=== PATIENT | female | born 1970 | race Caucasian/White ===

== ENCOUNTER 2021-08-23 09:17 | Emergency (ER) | payer OTHER, BC, SELFPAY ==
[2021-08-23] VITALS (14 sets, daily range): BP systolic 119–167; BP diastolic 62–98; PULSE 106; RESP 20; TEMP 36.4–36.6; O2SAT 96–99
--- NOTE | ~2021-08-23 | CT_ITS ---
EXAMINATION: CT abdomen pelvis w con INDICATION: Central abdominal and right upper quadrant pain TECHNIQUE: Computed tomographic images of the abdomen and pelvis were obtained after the administrati on of 100 cc of Omnipaque 300 intravenous contrast. The dose-length product (DLP) was 1318.62 mGy-cm. Automated exposure control and iterative reconstruction technique were employed. COMPARISON: None available FINDINGS: The lung bases are clear. The heart size is normal. Cysts of the liver measure up to 10 mm in the right hepatic lobe. The spleen, pancreas, gallbladder, and right adrenal gland are normal. The re is a 9 mm mass of the left adrenal gland which may reflect an adenoma. There are punctate nonobstr ucting stones of the left kidney. The right kidney is unremarkable. No pathologically enlarged abdomi nal or pelvic lymph nodes are identified. There is no free intraperitoneal gas or evidence of bowel o bstruction. There is a fat-containing midline ventral hernia approximately 3.5 cm cephalad to the umb ilicus. Although the neck measures approximately 2.1 cm, there is a moderate amount of associated inf lammatory change and hernia and a small amount of fluid in the hernia sac. There is also a small fat- containing umbilical hernia. The appendix is normal. IMPRESSION: 1. Fat-containing midline ventral hernia cephalad to the umbilicus with moderate associated inflammat ory change as well as small volume of fluid. Reviewed, dictated and finalized at location A. IMPRESSION: 1. Fat-containing midline ventral hernia cephalad to the umbilicus with moderat e associated inflammatory change as well as small volume of fluid.
--- NOTE | ~2021-08-23 | US_ITS ---
EXAMINATION: US right upper quadrant DATE: 08/23/2021 10:48 INDICATION: Right upper quadrant. TECHNIQUE: Multiple grayscale and Doppler ultrasound images of the abdomen were obtained. COMPARISON: CT from today FINDINGS: The head, body, and tail of the pancreas are normal. The liver is unremarkable with normal echogenicity and echotexture. No surface nodularity. Normal hepatopetal flow in the main portal vein. The gallbladder is normal with no abnormal wall thickening, pericholecystic fluid or stones. The nor mal common bile duct measures 4 mm. There was no sonographic Morrow sign. IMPRESSION: 1. Normal sonographic study of the gallbladder. Reviewed, dictated and finalized at location A.
--- NOTE | 2021-08-23 09:47 | ED.ABDPAIN ---
HPI - Abdominal Pain General Chief Complaint: Abdominal Pain Stated Complaint: abd pain Time Seen by Provider: 08/23/21 09:30 History of Present Illness HPI narrative: 51 y/o female presents to the ER today for complaints of abdominal pain. She says that it is not very painful right now but yesterday evening and through the night it was very painful and she was not able to rest. She says that the pain is in her epigastric and RUQ area and will radiate into her back. She also has a known abdominal hernia that she says has been feeling tender. This is near the umbilicus, to the right of it. She says that she had a similar episode on August 10 that lasted a couple of days. She also recounts and episode of heartburn and foul smelling belching for about a week around July 28. She says that she feels like something is wrong with her GI system but not sure what it is. She still has her gallbladder. She is not sure if food intake brings symptoms on but says that it is possible. No nausea, vomiting or diarrhea. She does report history of GERD. Related Data Home Medications Medication Instructions Recorded Confirmed ferrous sulfate 325 mg (65 mg 325 mg PO DAILY 02/26/19 07/05/20 iron) tablet fluticasone propionate 50 1 spray INTRANASAL BID 03/03/20 07/05/20 mcg/actuation nasal spray,suspension cholecalciferol (vitamin D3) 25 2,000 unit PO DAILY tablet 07/05/20 07/05/20 mcg (1,000 unit) tablet Allergies Allergy/AdvReac Type Severity Reaction Status Date / Time Penicillins Allergy Unknown RASH Verified 04/03/19 12:27 Review of Systems Constitutional: Constitutional: Denies chills and Denies fever(s) ENT: Denies dysphagia, Denies nasal congestion and Denies sore throat Cardiovascular: Cardiovascular: Denies chest pain and Denies rapid heart rate Respiratory: Respiratory: Denies chest congestion, Denies cough and Denies dyspnea Gastrointestinal: Gastrointestinal: Reports abdominal pain, Reports bloating, Denies constipation, Reports heartburn, Denies diarrhea, Denies nausea and Denies vomiting Genitourinary: Genitourinary: Denies flank pain Musculoskeletal: Musculoskeletal: Denies back pain and Denies myalgias Integumentary/Breasts: Skin/Breast: Denies rash Neurologic: Denies dizziness, Denies headache(s) and Denies weakness Psychiatric: Psychiatric: Denies anxiety and Denies depression Endocrine: Endocrine: Reports no additional endocrine complaints, Denies excessive sweating and Denies polyuria Hematologic/Lymphatic: Hematologic/Lymphatic: Reports no additional hematologic/lymphatic complaints Allergic/Immunologic: Allergic/Immunologic: Reports no additional allergic/immunologic complaints PMFSH Past Medical History Medical History Acute non-recurrent maxillary sinusitis BMI 37.0-37.9, adult COVID-19 (04/18/21) tested 04/22/21 Diabetes mellitus with hyperglycemia, without long-term current use of insulin Eczema Elevated liver enzymes Encounter for screening for other viral diseases Essential (primary) hypertension Exposure to COVID-19 virus Gastro-esophageal reflux disease without esophagitis Hypersomnia Iron deficiency Mixed hyperlipidemia Pharyngitis Seasonal allergic rhinitis Tonsillar hypertrophy Vitamin B12 deficiency anemia Vitamin D insufficiency Family History Family History Mother Diabetes mellitus Family history of hypercholesterolemia Patient's mother is in good health Family history of cardiovascular disease Family history of chronic obstructive pulmonary disease Father Diabetes mellitus, Onset Age: 66 Family history of kidney disease, Onset Age: 66 Family history of renal failure Grandparent Diabetes mellitus, Onset Age: 93 Family history of cardiovascular disease, Onset Age: 71 Malignant neoplasm of prostate Social History Social History (Reviewed
[2021-08-23 10:06] LABS: Basophils Percent Auto 0.7 % (0.2-1.2); Eosinophils Absolute Auto 0.1 K/mm3 (0-0.3); Hemoglobin 11.1 g/dL (12.0-15.0); Immature Granulocyte Absolute 0.02 K/mm3 (0.00-0.031); Immature Granulocyte Percent A 0.4 % (0-0.5); Lymphocytes Absolute Auto 1.47 K/mm3 (0.9-3.2); Lymphocytes Percent Auto 26.4 % (18.3-44.2); Mean Corpuscular HGB Conc 28.5 g/dl (32-36); Mean Corpuscular Hemoglobin 21.2 pg (26-34); Mean Corpuscular Volume 74.6 fl (80-100); Mean Platelet Volume 10.8 fl (7.4-10.4); Monocytes Absolute Auto 0.4 K/mm3 (0.1-0.6); Monocytes Percent Auto 7.2 % (2.6-8.5); Neutrophils Absolute Auto 3.5 K/mm3 (1.3-6.7); Neutrophils Percent Auto 63.3 % (45.5-73.1); Platelet Count Result 315 k/mm3 (150-375); Red Blood Count 5.23 M/mm3 (4.2-5.4); White Blood Count 5.6 K/mm3 (4.5-10.0)
[2021-08-23 10:07] LABS: Appearance Urine Clear (Clear); Bilirubin Urine Negative (Negative); Blood Urine Negative (Negative); Color Urine Yellow (Yellow); Glucose Urine UA 3+ mg/dL (Negative); Ketones Urine Negative (Negative); Leukocyte Esterase Ur Negative LEU/UL (Negative); Nitrate Urine Negative (Negative); Protein Urine Negative (Negative); Urobilinogen Urine 0.2 mg/dL (<2.0); pH Urine 5.5 (5.0-9.0)
[2021-08-23 10:08] LABS: Mucus Urine Rare /lpf; Squamous Epithelial Cell Urine Few /hpf (Few); WBC Urine 0-3 /hpf
[2021-08-23 10:11] LABS: Add Urine Microscopic? YES
[2021-08-23 10:15] LABS: Alanine Aminotransferase 29 U/L (6-35); Albumin Level 4.5 g/dL (3.5-5.1); Alkaline Phosphatase 131 U/L (38-126); Anion Gap 10 mmol/L (8-16); Anisocytosis 1+ (NORMAL); Aspartate Amino Transferase 26 U/L (14-36); Bilirubin,Total 0.5 mg/dL (0.2-1.3); Blood Urea Nitrogen 14 mg/dL (7-17); Burr Cells 1+ (NORMAL); Calcium 9.2 mg/dL (8.4-10.2); Carbon Dioxide 23 mmol/L (22-30); Chloride 104 mmol/L (98-107); Estimated CRCL calculation 96 ml/min; Estimated Glomerular Filt Rate > 60; Glucose 239 mg/dL (65-110); Lipase 410 U/L (23-300); Ovalocytes 2+ (NORMAL); Platelet Estimate Adequate (Adequate); Potassium 4.2 mmol/L (3.4-5.0); Sodium 137 mmol/L (137-145)
[2021-08-23 10:16] LABS: Hypochromasia 1+ (NORMAL)
[2021-08-23] MEDS: SODIUM CHLORIDE 0.9% IV 1,000 ML 999 ML IV CONT (10:46)
[2021-08-23 11:29] LABS: Amylase 117 U/L (30-110)
== END 2021-08-23 12:09 | disposition home or self-care (01) ==
PROVIDERS: Emergency Provider Nurse Practitioner Family; PCP Family Medicine
DX: K43.9 Ventral hernia without obstruction or gangrene (principal); E11.65 Type 2 diabetes mellitus with hyperglycemia; I10 Essential (primary) hypertension; E78.2 Mixed hyperlipidemia; K21.9 Gastro-esophageal reflux disease without esophagitis; E61.1 Iron deficiency; D51.9 Vitamin B12 deficiency anemia, unspecified; E55.9 Vitamin D deficiency, unspecified; Z86.16 Personal history of COVID-19; Z79.84 Long term (current) use of oral hypoglycemic drugs
CPT/HCPCS: 36415; 74177; 76705; 80053; 81001; 82150; 83690; 85025; 96360; 99284; J7030; Q9967

== ENCOUNTER 2021-10-13 10:09 | Outpatient (CLI) | payer OTHER, BC, SELFPAY ==
--- NOTE | 2021-10-13 10:00 | ECG_ITS ---
Measurements Intervals [place] Rate: 96 P: 37 AL: 113 QRS: -2 QRSD: 101 T: 32 QT: 349 QTc: 442 Interpretive Statements SINUS RHYTHM WITH SHORT AL INTERVAL POSSIBLE LEFT ATRIAL ENLARGEMENT BORDERLINE R WAVE PROGRESSION, ANTERIOR LEADS CONSIDER INFERIOR INFARCT, AGE INDETERMINATE BORDERLINE ST-T WAVE ABNORMALITY- ANTEROLAT/HIGH LAT LEADS BASELINE ARTIFACT- I, II, III, AVR, AVL, AVF, V4-V6 ABNORMAL ECG Electronically Signed On 10-13-2021 11:59:37 CDT by Pradeep Patterson D.O.
[2021-10-13 10:36] LABS: Hematocrit 36.1 % (37.0-47.0); Hemoglobin 10.5 g/dL (12.0-15.0)
== END 2021-10-13 10:10 | disposition home or self-care (01) ==
LOC: ANHSURGERY 10:12
PROVIDERS: Anesthesiology; PCP Family Medicine; Visit Provider Surgery
DX: D51.9 Vitamin B12 deficiency anemia, unspecified (principal); I10 Essential (primary) hypertension; Z01.818 Encounter for other preprocedural examination
CPT/HCPCS: 36415; 85014; 85018; 93005

== ENCOUNTER 2021-10-19 17:26 | Observation (INO) | payer OTHER, BC, SELFPAY ==
[2021-09-28 14:50] VITALS: BMI 34.7
--- NOTE | 2021-09-28 15:03 | SUR.PREOP ---
Report to the Outpatient Waiting Room, entrance under the green pavilion located off [facility], at time 1000 on date 10/05/21. OR Time: _1200_. - You and your visitor will be asked a series of questions to screen for COVID 19 for your protection. - Only one visitor is allowed at this time. - The patient visitor is requested to leave or wait in car when not with patient. - A mask is required within the hospital. Patients may have clear liquids (water, carbonated beverages, clear teas, apple juice) until 3 hours prior to surgery with a maximum of 20 ounces. - No food from midnight until time of surgery BEFORE 0900 AM - Infants may have breast milk until 4 hours before surgery, infant formula 6 hours prior to surgery. - Children will be allowed to drink immediately following surgery. If applicable, please bring a bottle or sippy cup to assist with drinking. Juice, water, soda, and popsicles are readily available. For infants on formula, please bring formula the day of surgery. Pacifiers are allowed. Take the following medications with a SIP of water the morning of surgery: _N/A__ Medications to discontinue per physician _VITAMINS AND SUPPLEMENTS FOR 3 DAYS PRIOR TO SURGERY. HOLD LOSARTIN, FARXIGA AND METFORMIN MORNING OF SURGERY. Date to take last dose Please no make-up, nail turkmen, hairspray, perfume, deodorant, or body powder the day of surgery. No jewelry (including any body piercings) or valuables the day of surgery, leave them at home. Please take a shower or bath the night before, or the morning of, surgery with an antibacterial soap. Wear comfortable, loose fitting clothing. Children are encouraged to wear pajamas. USE HIBICLENS MORNING OF SURGERY - Jewelry must be removed prior to entering the operating room. Rings and piercings that are not removed may be cut off. - The hospital will not accept responsibility for valuables. - Please leave all valuables, including medications, at home the day of surgery. If you are going home after surgery, a licensed charter driver must drive you home. - NO public transportation without another adult. - We recommend that an adult stay with you for 24 hours following discharge. - We also recommend that you do not drive, make important decision, drink alcoholic beverages, or take any drugs that were not prescribed by your health care provider for at least 24 hours after your discharge time. For Pediatric surgeries, we recommend two adults accompany the child home (only one inside the building at this time). Follow any additional instructions given to you from your surgeon. If you or anyone in your household have experienced Covid symptoms in the past week, please notify your surgeon or the nurse liaison at the phone number below for possible testing. Telephone instructions given to _PATIENT__and asked if any additional questions and then verbalized understanding. Patient advised to call surgeon office or pre surgery nurse liaison [phone] if any additional questions.
--- NOTE | 2021-10-02 13:39 | SUR.PREOP ---
Patient called to report not feeling well and has developed a bad cough. States she called office to report and is waiting to hear back from office. Per patient may need to delay case until feeling better. I spoke to patient and if case not delayed, we will plan a pre surgery Covid test. Patient aware of plan.
--- NOTE | 2021-10-10 15:25 | PC.NURSE ---
No changes since last interview 11 days ago per patient.
--- NOTE | 2021-10-10 15:29 | PC.NURSE ---
Report to the Outpatient Waiting Room, entrance under the green pavilion located off [facility], at 0700 on 10-18-21. OR Time: 0900. - You and your visitor will be asked a series of questions to screen for COVID 19 for your protection. - Only one visitor is allowed at this time. - The patient visitor is requested to leave or wait in car when not with patient. - A mask is required within the hospital. Patients may have clear liquids (water, carbonated beverages, clear teas, apple juice) until 3 hours prior to surgery with a maximum of 20 ounces. 0600 - No food from midnight until time of surgery - Infants may have breast milk until 4 hours before surgery, infant formula 6 hours prior to surgery. - Children will be allowed to drink immediately following surgery. If applicable, please bring a bottle or sippy cup to assist with drinking. Juice, water, soda, and popsicles are readily available. For infants on formula, please bring formula the day of surgery. Pacifiers are allowed. Take the following medications with a SIP of water the morning of surgery: None; Bring albuterol inhaler DOS Medications to discontinue per physician: vitamins and supplements Date to take last dose: 10-15-21 Please no make-up, nail chinese, hairspray, perfume, deodorant, or body powder the day of surgery. No jewelry (including any body piercings) or valuables the day of surgery, leave them at home. Please take a shower or bath the night before, or the morning of, surgery with an antibacterial soap. Hibiclens Wear comfortable, loose fitting clothing. Children are encouraged to wear pajamas. - Jewelry must be removed prior to entering the operating room. Rings and piercings that are not removed may be cut off. - The hospital will not accept responsibility for valuables. - Please leave all valuables, including medications, at home the day of surgery. If you are going home after surgery, a licensed regional refrigerated cdl truck driver must drive you home. - NO public transportation without another adult. - We recommend that an adult stay with you for 24 hours following discharge. - We also recommend that you do not drive, make important decision, drink alcoholic beverages, or take any drugs that were not prescribed by your health care provider for at least 24 hours after your discharge time. For Pediatric surgeries, we recommend two adults accompany the child home (only one inside the building at this time). Follow any additional instructions given to you from your surgeon. If you or anyone in your household have experienced Covid symptoms in the past week, please notify your surgeon or the nurse liaison at the phone number below for possible testing. Telephone instructions given to Lizzy Valderrama and asked if any additional questions and then verbalized understanding. Patient advised to call surgeon office or pre surgery nurse liaison [phone] if any additional questions.
--- NOTE | 2021-10-17 12:56 | WPDANESEPPF ---
Anes - Initial Pre Proc Eval Procedure: Operation Date: 10/18/21 09:00 Proposed Procedures p Laparoscopic Repair of Ventral and Umbilical Hernias - Mendel South MD Date/Time: 10/17/21 12:56 Surgeon: Mendel South MD Pre Op Diagnosis: ventral and umbilical hernia Patient Data Age: 51 Gender: F Height: 1.68 m Weight: 97.52 kg Allergies Allergy/AdvReac Type Severity Reaction Status Date / Time Penicillins Allergy Intermediate RASH Verified 10/18/21 07:14 Home Medications Medication Instructions Recorded Confirmed Type ferrous sulfate 325 mg (65 mg 325 mg PO DAILY 02/26/19 10/18/21 History iron) tablet (Feosol) blood sugar diagnostic (OneTouch #200 ea 10/05/19 09/11/21 Rx Ultra Blue Test Strip) cholecalciferol (vitamin D3) 25 2,000 unit PO DAILY 07/05/20 10/18/21 History mcg (1,000 unit) tablet exenatide microspheres 2 mg/0.85 2 mg (0.85 mL) subcut WEEKLY #10.2 09/07/20 10/18/21 Rx mL subcutaneous auto-injector mL ([employer]) losartan 100 mg tablet 100 mg PO DAILY #90 tabs 10/31/20 10/18/21 Rx metformin 500 mg tablet,extended 1,000 mg PO BID #360 tabs 10/31/20 10/18/21 Rx release 24 hr atorvastatin 20 mg tablet 20 mg PO DAILY #90 tabs 09/04/21 10/18/21 Rx omeprazole 40 mg capsule,delayed 40 mg PO DAILY #90 caps 09/04/21 10/18/21 Rx release vitamin B complex (B 1 tablet PO DAILY 09/04/21 10/18/21 History Complex-Vitamin B12 tablet) dapagliflozin 10 mg tablet 10 mg PO DAILY 09/28/21 10/18/21 History (Farxiga) albuterol sulfate 90 mcg/actuation 2 inh inhalation Q6H PRN Shortness 10/10/21 10/18/21 History aerosol inhaler Of Breath Or Wheezing Patient hx anesthesia problems: none Family hx anesthesia problems: none Results Review: All pre-operative results and documents have been reviewed as part of the pre-operative evaluation. FOR[facility]LY [facility], [facility] Past Medical History Medical History Acute non-recurrent maxillary sinusitis BMI 37.0-37.9, adult COVID-19 (04/18/21) tested 04/22/21 Diabetes mellitus with hyperglycemia, without long-term current use of insulin Eczema Elevated liver enzymes Encounter for screening for other viral diseases Essential (primary) hypertension Exposure to COVID-19 virus Gastro-esophageal reflux disease without esophagitis Hypersomnia Iron deficiency Mixed hyperlipidemia Pharyngitis Seasonal allergic rhinitis Tonsillar hypertrophy Vitamin B12 deficiency anemia Vitamin D insufficiency Family History Family History Mother Diabetes mellitus Family history of hypercholesterolemia Patient's mother is in good health Family history of cardiovascular disease Family history of chronic obstructive pulmonary disease Father Diabetes mellitus, Onset Age: 66 Family history of kidney disease, Onset Age: 66 Family history of renal failure Grandparent Diabetes mellitus, Onset Age: 93 Family history of cardiovascular disease, Onset Age: 71 Malignant neoplasm of prostate Social History Social History Smoking status: Never smoker Alcohol intake: never Substance use: never Living arrangements: with family Spiritual care concerns: No Anes - Eval Final PreProcedure Day of Procedure 10/17/21 12:56 Patient weight: obese Heart: regular rate and rhythm Lungs: clear to auscultation Airway: Mallampati scale class II Neurological: alert and oriented Last oral intake: >/= 8 hours ASA classification: III Emergent: no Anesthetic plan: proceed Anesthesia type and monitoring: general ETT and standard monitoring Results Review: All pre-operative results and documents have been reviewed as part of the pre-operative evaluation. Informed Consent: The patient's anesthetic plan and its attendant risks and benefits were discussed with the patient/family/POA. Question
[2021-10-18] VITALS (18 sets, daily range): BP systolic 111–146; BP diastolic 58–93; PULSE 78–106; RESP 16–20; TEMP 36.4–37.1; O2SAT 90–99
--- NOTE | 2021-10-18 07:07 | PM.IMHP ---
H&P: HPI History of Present Illness Date/Time: 10/18/21 07:07 Chief Complaint: Ventral hernias Narrative: the patient is a 51-year-old woman who was in the emergency room both in July and in August with upper abdominal pain. Exam and imaging showed a symptomatic ventral hernia a few cm above the umbilicus. She also has an umbilical hernia. patient was seen in the office and exam confirmed findings of 2 hernias, the symptomatic hernia being the ventral hernia above the umbilicus and an incidental umbilical hernia. After discussion in the office, patient is taken to surgery now for laparoscopic repair of ventral and umbilical hernias. Review of Systems Review of Systems: All systems reviewed & are unremarkable except as noted in HPI and below ( HPI and those items noted below) Constitutional: Constitutional: Denies chills and Denies fever(s) Cardiovascular: Cardiovascular: Denies chest pain, Denies diaphoresis, Denies dyspnea and Denies paroxysmal nocturnal dyspnea Respiratory: Respiratory: Denies chest congestion, Denies cough and Denies dyspnea Gastrointestinal: Gastrointestinal: Reports as per HPI Musculoskeletal: Musculoskeletal: Reports back pain Integumentary/Breasts: Skin/Breast: Denies lesions and Denies rash Psychiatric: Psychiatric: Reports abnormal sleep pattern [facility] Past Medical History Medical History Acute non-recurrent maxillary sinusitis BMI 37.0-37.9, adult COVID-19 (04/18/21) tested 04/22/21 Diabetes mellitus with hyperglycemia, without long-term current use of insulin Eczema Elevated liver enzymes Encounter for screening for other viral diseases Essential (primary) hypertension Exposure to COVID-19 virus Gastro-esophageal reflux disease without esophagitis Hypersomnia Iron deficiency Mixed hyperlipidemia Pharyngitis Seasonal allergic rhinitis Tonsillar hypertrophy Vitamin B12 deficiency anemia Vitamin D insufficiency Family History Family History Mother Diabetes mellitus Family history of hypercholesterolemia Patient's mother is in good health Family history of cardiovascular disease Family history of chronic obstructive pulmonary disease Father Diabetes mellitus, Onset Age: 66 Family history of kidney disease, Onset Age: 66 Family history of renal failure Grandparent Diabetes mellitus, Onset Age: 93 Family history of cardiovascular disease, Onset Age: 71 Malignant neoplasm of prostate Social History Social History Smoking status: Never smoker Alcohol intake: never Substance use: never Living arrangements: with family Spiritual care concerns: No Meds Home Medications and Allergies Home Medications Medication Instructions Recorded Confirmed Type ferrous sulfate 325 mg (65 mg 325 mg PO DAILY 02/26/19 09/28/21 History iron) tablet (Feosol) blood sugar diagnostic (OneTouch #200 ea 10/05/19 09/11/21 Rx Ultra Blue Test Strip) cholecalciferol (vitamin D3) 25 2,000 unit PO DAILY 07/05/20 09/28/21 History mcg (1,000 unit) tablet exenatide microspheres 2 mg/0.85 2 mg (0.85 mL) subcut WEEKLY #10.2 09/07/20 09/28/21 Rx mL subcutaneous auto-injector mL ([employer]) losartan 100 mg tablet 100 mg PO DAILY #90 tabs 10/31/20 09/28/21 Rx metformin 500 mg tablet,extended 1,000 mg PO BID #360 tabs 10/31/20 09/28/21 Rx release 24 hr atorvastatin 20 mg tablet 20 mg PO DAILY #90 tabs 09/04/21 09/28/21 Rx omeprazole 40 mg capsule,delayed 40 mg PO DAILY #90 caps 09/04/21 09/28/21 Rx release vitamin B complex (B 1 tablet PO DAILY 09/04/21 09/28/21 History Complex-Vitamin B12 tablet) dapagliflozin 10 mg tablet 10 mg PO DAILY 09/28/21 09/28/21 History (Farxiga) albuterol sulfate 90 mcg/actuation 2 inh inhalation Q6H PRN Shortness 10/10/21 10/10/21 History aerosol inhale
--- NOTE | 2021-10-18 07:16 | WPDHPUPDATE1 ---
History and Physical Update Update Date/Time: 10/18/21 07:16 History and Physical has been reviewed, including an updated exam of the patient. There are NO changes in the patient's condition. Risks, benefits, and alternatives have been discussed and questions answered. Patient agrees to proceed with procedure.
[2021-10-18] MEDS: ACETAMINOPHEN 500 MG TABLET 1000 MG PO (07:26)
[2021-10-18] MEDS: LACTATED RINGERS 1,000 ML 30 ML IV CONT ×2 (07:35→10:55)
[2021-10-18] MEDS: KETOROLAC 15 MG/ML VIAL (*BKC) IV PUSH (07:36)
[2021-10-18 07:44] LABS: Glucose Point of Care 218 mg/dl (65-105)
[2021-10-18] MEDS: ceFAZolin 2 GM/D5W 50 ML 2 GM/50 ML BAG IVPB (08:51)
[2021-10-18] MEDS: LIDO 1%/EPINEPHRINE/PF 1:200,000 30 ML VIAL XX (10:09)
--- NOTE | 2021-10-18 10:53 | W.PM.PROC2 ---
Procedure Note - Detailed Date of Procedure 10/18/21 Pre-op Diagnosis ventral and umbilical hernias Post-op Diagnosis Same Procedure Performed Laparoscopic repair of ventral and umbilical hernias with 20 x [address] mesh Surgeon Mendel South MD Document Control Supervisor Kamilla HERNANDEZ Anesthesia General and Local (1% lidocaine with epinephrine) Indications Patient has had abdominal pain and been to the emergency room a couple of different times. Workup has shown a ventral hernia which has been the source of the pain as well as an umbilical hernia below the ventral hernia. She was seen in the office and is taken to surgery now for laparoscopic repair of both hernias with mesh. Findings The 2 hernias were fairly close together. There was only about 5 cm abdominal wall the 2. The umbilical hernia was much smaller. The ventral hernia was chronically incarcerated with omentum and properitoneal fat. No other significant findings were noted Description of Procedure Patient was taken to surgery and induced into general anesthesia. The abdomen is prepped and draped. Trocars were placed in usual fashion starting with a 5 mm applied Medical optical trocar in the left subcostal position. Local anesthetic was infiltrated prior to placement of each of the trocars. With this trocar in position, we insufflated the abdomen and then placed the 5 mm left lateral mid abdominal trocar as well as the 10 11 left lower quadrant trocar under direct visualization. Later in the surgery, a 5 mm port was placed in the right mid abdomen laterally using the same technique. With the trocars in position, we were able to see the omentum incarcerated in the ventral hernia. I was able to gently score the outer aspect of the hernia and reduce the omentum from the hernia defect. There was also some properitoneal fat incarcerated and eventually I reduced and divided the hernia sac free. It was removed from the abdomen and discarded. The falciform ligament was very close to the hernia defect. I took down the falciform ligament well up near the xiphoid. This gave a nice area to apply mesh to the ventral hernia. I then measured the distance between the 2 defects. The larger ventral hernia was only 2 cm wide. There was about 6-7 cm the cephalad and caudad edges of the 2 hernias. I chose a 15 x [address] mesh. I used a 22 gauge needle and a marker and found the outline of the 2 hernia defects in the area that would most need to be covered by the mesh. This was marked on the patient's IO band over the skin. I then positioned the mesh over the area and marked the outline where the mesh would eventually lie. I also marked where the transfascial sutures would be placed. I then used 2-0 [place]-Hira suture and placed the transfascial sutures at the midpoint of each side of the mesh. Four such transfascial sutures were placed. The mesh was then rolled and introduced through the 10 11 left lower quadrant trocar site. It was then unrolled and oriented appropriately. I used the granny suture pass device and brought each of the transfascial sutures out through the skin at their pre planned location. Pulling each of these sutures up, the mesh was in good position with sufficient tension that the sutures could then be tied down. The Opti Fix AT was then used to tack the mesh to the anterior abdominal wall. At this time the 4th trocar was placed in the right lateral mid abdomen. The mesh was securely tacked to the anterior abdominal wall using the double crown technique. It was in good position with mild tension. I then used the Travis cone and granny suture Passer to close the fascia at the 10 11 left lower quadrant trocar site. 0 Vicryl suture was used. We then evacuated CO2 and removed the trocar sleeves. All the skin incisions were closed with subcuticular 4-0 Monocryl skin suture. The transfascial suture incisions were closed with the Exofin surgical a
[2021-10-18 11:19] LABS: Glucose Point of Care 207 mg/dl (65-105)
[2021-10-18] MEDS: ONDANSETRON INJ 4 MG/2 ML VIAL IV PUSH (11:27)
--- NOTE | 2021-10-18 11:28 | SUR.PHASEI ---
1128 - c/o nausea. medicated for same.
--- NOTE | 2021-10-18 11:32 | SUR.PHASEI ---
1130 - anesthesia made of accuchek result from PACU. no new orders given.
[2021-10-18] MEDS: fentaNYL CITRATE INJ (*CRX) 100 MCG/2 ML VIAL 25 MCG IV PUSH (11:50)
[2021-10-18] MEDS: HYDROcodone/acetaminophen (*CRX) 5-325 MG TABLET 1 TAB PO (14:14)
[2021-10-18] MEDS: LACTATED RINGERS 1,000 ML 100 ML IV CONT (14:18)
--- NOTE | 2021-10-18 15:48 | PM.IMCN ---
Assessment and Plan Assessment and plan (1) Umbilical hernia without mention of obstruction or gangrene: Code(s): K42.9 - Umbilical hernia without obstruction or gangrene Status: Chronic Assessment and Plan: Lizzy Valderrama is a 51 year old female had been seen general surgeon with complaint of ventral and umbilical hernia and today patient was taken to the OR for surgical repair today, patient has history of hypertension and diabetes been consulted for medical management, patient remains clinically stable, complains of abdominal pain with movement most likely secondary to the surgery, patient denies any nausea or vomiting, any chest pain shortness of breath or dizzy, patient's home medications resumed, will monitor, thank you for consulting for medical management, will follow the patient with you, if you have any question please feel free to call. DVT prophylaxis per surgery team. (2) Essential (primary) hypertension: Code(s): I10 - Essential (primary) hypertension Status: Acute Assessment and Plan: patient started on home medication will monitor (3) Diabetes mellitus with hyperglycemia, without long-term current use of insulin: Code(s): E11.65 - Type 2 diabetes mellitus with hyperglycemia Status: Chronic Assessment and Plan: patient started on metformin will monitor with sliding scale. HPI Data of Consult Consult date: 10/18/21 Requesting Physician: Mendel South MD Primary Care Provider: Sy Liu MD Consult Narrative Narrative: Lizzy Valderrama is a 51 year old female had been seen general surgeon with complaint of ventral and umbilical hernia and today patient was taken to the OR for surgical repair today, patient has history of hypertension and diabetes been consulted for medical management, patient remains clinically stable, complains of abdominal pain with movement most likely secondary to the surgery, patient denies any nausea or vomiting, any chest pain shortness of breath or dizzy, patient's home medications resumed, will monitor, thank you for consulting for medical management, will follow the patient with you, if you have any question please feel free to call. Review of Systems Review of Systems: All systems reviewed & are unremarkable except as noted in HPI and below ( HPI and those items noted below) Constitutional: Constitutional: Denies chills and Denies fever(s) Cardiovascular: Cardiovascular: Denies chest pain, Denies diaphoresis, Denies dyspnea and Denies paroxysmal nocturnal dyspnea Respiratory: Respiratory: Denies chest congestion, Denies cough and Denies dyspnea Gastrointestinal: Gastrointestinal: Reports as per HPI Musculoskeletal: Musculoskeletal: Reports back pain Integumentary/Breasts: Skin/Breast: Denies lesions and Denies rash Psychiatric: Psychiatric: Reports abnormal sleep pattern [facility] Past Medical History Medical History Acute non-recurrent maxillary sinusitis BMI 37.0-37.9, adult COVID-19 (04/18/21) tested 04/22/21 Diabetes mellitus with hyperglycemia, without long-term current use of insulin Eczema Elevated liver enzymes Encounter for screening for other viral diseases Essential (primary) hypertension Exposure to COVID-19 virus Gastro-esophageal reflux disease without esophagitis Hypersomnia Iron deficiency Mixed hyperlipidemia Pharyngitis Seasonal allergic rhinitis Tonsillar hypertrophy Vitamin B12 deficiency anemia Vitamin D insufficiency Family History Family History Mother Diabetes mellitus Family history of hypercholesterolemia Patient's mother is in good health Family history of cardiovascular disease Family history of chronic obstructive pulmonary disease Father Diabetes mellitus, Onset Age: 66 Family history of kidney disease, Onset Age: 66 Family history of renal fa
[2021-10-18 16:21] LABS: Glucose Point of Care 224 mg/dl (65-105)
[2021-10-18] MEDS: INSULIN ASPART (*BKC) 100 UNITS/ML SUB-Q (16:54)
[2021-10-18] MEDS: metFORMIN HCL XR 500 MG TAB.SR.24H 1000 MG PO (16:54)
[2021-10-18] MEDS: MORPHINE SULFATE (*CRX) 4 MG/ML INJ IV PUSH (16:55)
[2021-10-18] MEDS: ATORVASTATIN 20 MG TABLET PO (17:01)
--- NOTE | 2021-10-18 18:36 | ADMGEN ---
This patient, Lizzy Valderrama, was admitted to 2 Medical Room 260-. Patient/family oriented to hospital policies and general routines including ID bracelet, bed and alarms, visiting hours, pain management, procedures, bathroom and other care routines, personal items, smoking policy, room service/diet, and visiting hours. Information on how to activate the Rapid Response Team has been discussed. Patient/Family are encouraged to report perceived risks to care and to ask questions if they do not understand what they are told or what they should do.
[2021-10-18] MEDS: SENNA/DOCUSATE SODIUM TABLET 2 TAB PO (21:24)
[2021-10-18] MEDS: PANTOPRAZOLE 40 MG TABLET PO (21:24)
[2021-10-18 21:36] LABS: Glucose Point of Care 215 mg/dl (65-105)
[2021-10-19] MEDS: HYDROcodone/acetaminophen (*CRX) 7.5-325 MG TABLET 1 TAB PO ×3 (00:52→14:07)
[2021-10-19 00:53] VITALS: BP 136/72; PULSE 90; RESP 16; TEMP 36.4; O2SAT 94
[2021-10-19 05:11] VITALS: BP 127/69; PULSE 93; RESP 16; TEMP 36.8; O2SAT 94
[2021-10-19 06:20] LABS: Hematocrit 30.7 % (37.0-47.0); Hemoglobin 9.2 g/dL (12.0-15.0); Mean Corpuscular Hemoglobin 22.1 pg (26-34); Mean Corpuscular Volume 73.6 fl (80-100); Mean Platelet Volume 10.7 fl (7.4-10.4); Platelet Count Result 305 k/mm3 (150-375); Red Blood Count 4.17 M/mm3 (4.2-5.4); Red Cell Distribution Width 18.4 % (11.5-14.5); White Blood Count 8.1 K/mm3 (4.5-10.0)
[2021-10-19 06:31] LABS: Sodium 134 mmol/L (137-145)
[2021-10-19 06:47] LABS: Anion Gap 5 mmol/L (8-16); Blood Urea Nitrogen 12 mg/dL (7-17); Calcium 8.3 mg/dL (8.4-10.2); Carbon Dioxide 21 mmol/L (22-30); Chloride 108 mmol/L (98-107); Estimated CRCL calculation 113 ml/min; Estimated Glomerular Filt Rate > 60; Glucose 148 mg/dL (65-110); Magnesium 1.9 mg/dL (1.6-2.3); Potassium 3.7 mmol/L (3.4-5.0)
[2021-10-19 08:02] LABS: Glucose Point of Care 209 mg/dl (65-105)
[2021-10-19] MEDS: ENOXAPARIN 40 MG/0.4 ML SYRINGE SUB-Q (08:04)
[2021-10-19] MEDS: CHOLECALCIFEROL 1,000 UNITS TABLET 2000 UNITS PO (08:04)
[2021-10-19] MEDS: metFORMIN HCL XR 500 MG TAB.SR.24H 1000 MG PO ×2 (08:04→17:05)
[2021-10-19] MEDS: polyethylene glycoL 3350 17 GM POWD.PACK PO (08:04)
[2021-10-19] MEDS: EMPAGLIFLOZIN 25 MG TABLET PO (08:05)
[2021-10-19] MEDS: FERROUS SULFATE 324 MG TABLET PO (08:05)
[2021-10-19] MEDS: LOSARTAN POTASSIUM 100 MG TABLET PO (08:05)
[2021-10-19 08:06] VITALS: RESP 16; O2SAT 94
[2021-10-19] MEDS: INSULIN ASPART (*BKC) 100 UNITS/ML SUB-Q ×2 (08:06→11:51)
[2021-10-19] MEDS: VITAMIN B COMPLEX CAPSULE 1 CAP PO (08:06)
--- NOTE | 2021-10-19 08:44 | WPDANESPN ---
Anes - Prog Note Post-Op Date/Time: 10/19/21 08:44 Vital Signs: Last Vital Signs Temp 36.8 C 10/19/21 05:11 Pulse 93 10/19/21 05:11 Resp 16 10/19/21 05:11 BP 127/69 10/19/21 05:11 Pulse Ox 94 10/19/21 05:11 O2 Del Method Room Air 10/18/21 20:00 O2 Flow Rate 2 10/18/21 12:40 Pain Score (VAS): 0 I/O: Intake & Output 10/18/21 10/19/21 10/19/21 23:59 07:59 15:59 Intake Total 850 1550 0 Output Total 150 900 Balance 700 650 0 Laboratory Tests 10/19/21 05:25 10/19/21 05:25 10/18/21 10/18/21 10/18/21 11:02 16:19 21:23 WBC RBC Hgb Hct MCV MCH MCHC RDW Plt Count MPV Sodium Potassium Chloride Carbon Dioxide Anion Gap BUN Creatinine Estim Creat Clear Calc Estimated GFR Glucose POC Capillary Glucose 207 H 224 H 215 H Calcium Magnesium 10/19/21 10/19/21 10/19/21 05:25 05:25 07:25 WBC 8.1 RBC 4.17 L Hgb 9.2 L Hct 30.7 L MCV 73.6 L MCH 22.1 L MCHC 30.0 L RDW 18.4 H Plt Count 305 MPV 10.7 H Sodium 134 L Potassium 3.7 Chloride 108 H Carbon Dioxide 21 L Anion Gap 5 L BUN 12 Creatinine 0.60 L Estim Creat Clear Calc 113 Estimated GFR > 60 Glucose 148 H POC Capillary Glucose 209 H Calcium 8.3 L Magnesium 1.9 Patient Feedback: Patient satisfied with anesthetic care.
[2021-10-19 09:55] VITALS: BP 133/78; PULSE 94; RESP 18; TEMP 36.3; O2SAT 94
--- NOTE | 2021-10-19 10:56 | PM.PNGS ---
Progress Note: A&P Assessment and Plan (1) Ventral hernia without obstruction or gangrene: Code(s): K43.9 - Ventral hernia without obstruction or gangrene Status: Chronic Assessment and Plan: POD#1 and doing well. Pain seems to be controlled with oral analgesics this morning. Continue diabetic diet. Encouraged increasing activity and trying to walk in the halls today. (2) Umbilical hernia without mention of obstruction or gangrene: Code(s): K42.9 - Umbilical hernia without obstruction or gangrene Status: Chronic (3) Obesity (BMI 30-39.9): Code(s): E66.9 - Obesity, unspecified Status: Chronic (4) Diabetes mellitus with hyperglycemia, without long-term current use of insulin: Code(s): E11.65 - Type 2 diabetes mellitus with hyperglycemia Status: Chronic Assessment and Plan: Home medications restarted and on sliding scale insulin. Continue accuchecks AC/HS. Will consult Hospitalist for medical management. (5) Iron deficiency: Code(s): E61.1 - Iron deficiency Status: Acute Assessment and Plan: Noted as far back as June of 2020 and takes ferrous sulfate, which has been restarted. She appears to be chronically anemic with a preoperative hgb of 10.5 and down to 9.2 today. This is likely related to the recent surgery and is dilutional. No signs of active bleeding. Repeat labs tomorrow. Plan I have discussed the patient's case and plan of care with Dr. South. Subjective Subjective Date/Time Seen: 10/19/21 10:56 Post Op day: 1 (Laparoscopic repair of ventral and umbilical hernias with 20 x [address] mesh) Patient reports: still having pain (incisional pain but controlled with analgesics), tolerating a regular diet, voiding w/o difficulty, no flatus, no bowel movement and afebrile Review of Systems Review of Systems: All systems reviewed & are unremarkable except as noted in HPI and below Constitutional: Constitutional: Reports as per HPI, Reports no additional constitutional complaints, Denies fever(s), Denies headache(s) and Denies weakness Cardiovascular: Cardiovascular: Reports no additional cardiovascular complaints, Denies chest pain and Denies leg edema Respiratory: Respiratory: Reports no additional respiratory complaints, Denies cough and Denies dyspnea Gastrointestinal: Gastrointestinal: Reports as per HPI and Reports no additional gastrointestinal complaints Exam Const: General: comfortable, no acute distress and awake Orientation/consciousness: patient oriented x3 Resp: Effort & Inspection: normal respiratory effort Auscultation: clear to auscultation bilaterally Cardio: Rate: regular rate Rhythm: regular rhythm GI: Inspection: non-distended and incision (Abdominal incisions dry and glue intact) GI Palp: Yes Soft to palpation and Yes Tenderness to palpation present (GI) (incisional) Auscultation: Hypoactive bowel sounds present Neuro: General: moves all extremities and no focal motor deficits Extrem: General: no calf tenderness and no edema Psych: Insight: Good insight present (Psych) Objective Data Vital Signs Vital Signs: Vital Signs - 24 hr 10/18/21 11:09 10/18/21 11:13 10/18/21 11:29 Temperature 98.7 F Pulse Rate 102 H 84 82 Respiratory Rate 19 20 18 Blood Pressure 137/83 137/76 127/58 L Pulse Oximetry 90 97 96 Oxygen Delivery Simple Face Mask Simple Face Mask Room Air Oxygen Flow Rate 7 5 10/18/21 11:40 10/18/21 11:55 10/18/21 12:10 Temperature Pulse Rate 84 78 82 Respiratory Rate 18 18 16 Blood Pressure 137/80 135/84 118/63 Pulse Oximetry 91 93 97 Oxygen Delivery Room Air Nasal Cannula Nasal Cannula Oxygen Flow Rate 2 2 10/18/21 12:40 10/18/21 12:25 10/18/21 12:55 Temperature Pulse Rate 85 79 86 Respiratory Rate 16 16 16 Blood Pressure 111/64 132/81 127/81 Pulse Oximetry 99 96 99 Oxygen Delivery Nasal Cannula Nasal Cannula Room Air Oxygen Flow Rate 2 2 10/18/21 13:1
[2021-10-19 11:44] LABS: Glucose Point of Care 219 mg/dl (65-105)
--- NOTE | 2021-10-19 12:27 | PM.IMPN ---
Progress Note: A&P Assessment and Plan (1) Umbilical hernia without mention of obstruction or gangrene: Code(s): K42.9 - Umbilical hernia without obstruction or gangrene Status: Chronic Assessment and Plan: Lizzy Valderrama is a 51 year old female had been seen general surgeon with complaint of ventral and umbilical hernia and today patient was taken to the OR for surgical repair today, patient has history of hypertension and diabetes been consulted for medical management, patient remains clinically stable, complains of abdominal pain with movement most likely secondary to the surgery, patient denies any nausea or vomiting, any chest pain shortness of breath or dizzy, patient's home medications resumed, will monitor, thank you for consulting for medical management, will follow the patient with you, if you have any question please feel free to call. DVT prophylaxis per surgery team. 10/19/2021 interval history: status post abdominal ventral hernia and umbilical hernia surgery postop day 1. , abdominal pain is better denies any nausea or vomiting, however has not passing any gas or had a BM, patient has been ambulating in the corridor, able to tolerate diabetic diet no nausea or vomit, patient is seen by surgery service will continue to monitor and further recommendation to follow. (2) Essential (primary) hypertension: Code(s): I10 - Essential (primary) hypertension Status: Acute Assessment and Plan: patient started on home medication will monitor (3) Diabetes mellitus with hyperglycemia, without long-term current use of insulin: Code(s): E11.65 - Type 2 diabetes mellitus with hyperglycemia Status: Chronic Assessment and Plan: patient started on metformin will monitor with sliding scale. Subjective Date/time seen: 10/19/21 12:27 Lizzy Valderrama is a 51 year old female had been seen general surgeon with complaint of ventral and umbilical hernia and today patient was taken to the OR for surgical repair today, patient has history of hypertension and diabetes been consulted for medical management, patient remains clinically stable, complains of abdominal pain with movement most likely secondary to the surgery, patient denies any nausea or vomiting, any chest pain shortness of breath or dizzy, patient's home medications resumed, will monitor, thank you for consulting for medical management, will follow the patient with you, if you have any question please feel free to call. DVT prophylaxis per surgery team. 10/19/2021 interval history: status post abdominal ventral hernia and umbilical hernia surgery postop day 1. , abdominal pain is better denies any nausea or vomiting, however has not passing any gas or had a BM, patient has been ambulating in the corridor, able to tolerate diabetic diet no nausea or vomit, patient is seen by surgery service will continue to monitor and further recommendation to follow. Review of Systems Review of Systems: All systems reviewed & are unremarkable except as noted in HPI and below ( HPI and those items noted below) Exam Narrative: moderately obese Patient is comfortable, NAD HEENT: eyes are clear and none icteric LUNGS: normal respiratory effort ABD: distended Lower extremities: no edema SKIN: nonjaundiced Neuro: grossly intact. Objective Data Vital Signs Vital Signs: Vital Signs - 24 hr 10/18/21 12:40 10/18/21 12:55 10/18/21 13:10 Temperature Pulse Rate 85 86 93 Respiratory Rate 16 16 16 Blood Pressure 111/64 127/81 134/81 Pulse Oximetry 99 99 96 Oxygen Delivery Nasal Cannula Room Air Room Air Oxygen Flow Rate 2 10/18/21 13:25 10/18/21 13:40 10/18/21 13:55 Temperature 98.5 F 97.5 F L 97.7 F Pulse Rate 97 91 90 Respiratory Rate 16 18 18 Blood Pressure 140/80 143/93 H 141/79 H Pulse Oximetry 94 94 93 Oxygen Delivery Room Air Oxygen Flow Rate 10/18/21 14:25 10/18/21 15:25 10/18/21 21:17 Temperature 98.0
[2021-10-19 14:50] VITALS: BP 109/70; PULSE 93; RESP 18; TEMP 36.8; O2SAT 96
[2021-10-19 16:10] LABS: Glucose Point of Care 158 mg/dl (65-105)
[2021-10-19] MEDS: ATORVASTATIN 20 MG TABLET PO (17:06)
[2021-10-19] MEDS: ACETAMINOPHEN 500 MG TABLET PO (19:54)
[2021-10-19 20:43] VITALS: BP 136/77; PULSE 87; RESP 16; TEMP 36.4; O2SAT 98
[2021-10-19] MEDS: SENNA/DOCUSATE SODIUM TABLET 2 TAB PO (21:56)
[2021-10-19] MEDS: PANTOPRAZOLE 40 MG TABLET PO (21:56)
[2021-10-19 23:41] LABS: Glucose Point of Care 165 mg/dl (65-105)
[2021-10-20 04:15] VITALS: BP 139/83; PULSE 93; RESP 20; TEMP 36.3; O2SAT 97
[2021-10-20 05:45] LABS: Hematocrit 30.2 % (37.0-47.0); Hemoglobin 9.1 g/dL (12.0-15.0); Mean Corpuscular HGB Conc 30.1 g/dl (32-36); Mean Corpuscular Hemoglobin 22.5 pg (26-34); Mean Corpuscular Volume 74.6 fl (80-100); Mean Platelet Volume 10.5 fl (7.4-10.4); Platelet Count Result 275 k/mm3 (150-375); Red Blood Count 4.05 M/mm3 (4.2-5.4); Red Cell Distribution Width 18.6 % (11.5-14.5); White Blood Count 8.1 K/mm3 (4.5-10.0)
[2021-10-20 05:56] LABS: Anion Gap 6 mmol/L (8-16); Blood Urea Nitrogen 11 mg/dL (7-17); Calcium 7.9 mg/dL (8.4-10.2); Carbon Dioxide 22 mmol/L (22-30); Chloride 108 mmol/L (98-107); Estimated CRCL calculation 113 ml/min; Estimated Glomerular Filt Rate > 60; Glucose 147 mg/dL (65-110); Magnesium 1.8 mg/dL (1.6-2.3); Potassium 3.9 mmol/L (3.4-5.0); Sodium 136 mmol/L (137-145)
--- NOTE | 2021-10-20 07:16 | PM.DS ---
DS: Admitting Diagnosis Discharge Date 10/20/2021 Admitting Diagnosis ventral and umbilical hernias obesity type 2 diabetes iron deficiency chronic anemia DS: Discharge Diagnosis Discharge Diagnosis (1) Ventral hernia without obstruction or gangrene: Code(s): K43.9 - Ventral hernia without obstruction or gangrene Status: Chronic Assessment and Plan: laparoscopic repair with mesh performed 10/18/2021 (2) Umbilical hernia without mention of obstruction or gangrene: Code(s): K42.9 - Umbilical hernia without obstruction or gangrene Status: Chronic (3) Obesity (BMI 30-39.9): Code(s): E66.9 - Obesity, unspecified Status: Chronic (4) Diabetes mellitus with hyperglycemia, without long-term current use of insulin: Code(s): E11.65 - Type 2 diabetes mellitus with hyperglycemia Status: Chronic (5) Iron deficiency anemia: Code(s): D50.9 - Iron deficiency anemia, unspecified Status: Acute Assessment and Plan: stable postop DS: Summary Hospital Course Hospital Course: the patient is a 51-year-old woman who was in the emergency room in July and August with abdominal pain. Exam and imaging had showed a ventral hernia that was symptomatic. This was above the umbilicus in the mid abdomen. She also was noted to have a smaller umbilical hernia as well. She was seen in the office. After being prepared for surgery, she was taken to the operating room on the day of admission 10/18/2021. Laparoscopic repair of the ventral hernia as well as the umbilical hernia was performed with 15 x [address] mesh. Patient did well after surgery. hospitalist's service kindly saw the patient and managed her diabetes and other medical conditions. She has chronic anemia but this was stable on postoperative lab testing. She was having quite a bit of pain on postop day 1. And had been taking some IV analgesics. She was much more comfortable on postop day 2. . She only required oral analgesics. Her wounds were healing well and the hernia repair was intact. She was able to be discharged in good condition on postop day 2. , 10/20/2021. Status at Discharge Functional status at discharge: independent ambulation Overall status at discharge: patient is progressing back to baseline Time Spent with Patient Time attestation: Total time spent providing and/or coordinating discharge services: Time spent: Less than 30 minutes Exam Const: General: comfortable and no acute distress; No confusion Orientation/consciousness: patient oriented x3 and No confusion GI: Inspection: incision ( all incisions dry and healing well), obesity ( Protuberant abdomen) and no visible herniation GI Palp: Yes Soft to palpation, Yes Tenderness to palpation present (GI) ( mild, appropriate, diffuse incisional tenderness), No Guarding due to palpation present (GI), No Hernia present and No Rebound tenderness present Auscultation: normal bowel sounds Neuro: General: patient oriented x3, no focal motor deficits and No confusion Extrem: General: no calf tenderness and no edema Psych: Affect: normal affect Insight: Good insight present (Psych) Judgement: Good judgement present (Psych) DS: Data Data Completed and Pending Labs on day of discharge: Labs from last 24 hours 10/20/21 10/20/21 10/19/21 05:22 05:22 22:04 WBC 8.1 RBC 4.05 L Hgb 9.1 L Hct 30.2 L MCV 74.6 L MCH 22.5 L MCHC 30.1 L RDW 18.6 H Plt Count 275 MPV 10.5 H Sodium 136 L Potassium 3.9 Chloride 108 H Carbon Dioxide 22 Anion Gap 6 L BUN 11 Creatinine 0.60 L Estim Creat Clear Calc 113 Estimated GFR > 60 Glucose 147 H POC Capillary Glucose 165 H Calcium 7.9 L Magnesium 1.8 10/19/21 10/19/21 10/19/21 16:07 11:37 07:25 WBC RBC Hgb Hct MCV MCH MCHC RDW Plt Count MPV Sodium Potassium Chloride Ca
[2021-10-20 07:38] LABS: Glucose Point of Care 139 mg/dl (65-105)
[2021-10-20] MEDS: ACETAMINOPHEN 500 MG TABLET PO (07:56)
[2021-10-20] MEDS: metFORMIN HCL XR 500 MG TAB.SR.24H 1000 MG PO (08:00)
[2021-10-20] MEDS: VITAMIN B COMPLEX CAPSULE 1 CAP PO (08:01)
[2021-10-20] MEDS: polyethylene glycoL 3350 17 GM POWD.PACK PO (08:02)
[2021-10-20] MEDS: EMPAGLIFLOZIN 25 MG TABLET PO (08:03)
[2021-10-20] MEDS: FERROUS SULFATE 324 MG TABLET PO (08:03)
[2021-10-20] MEDS: CHOLECALCIFEROL 1,000 UNITS TABLET 2000 UNITS PO (08:03)
[2021-10-20 08:04] VITALS: RESP 20; O2SAT 98
[2021-10-20] MEDS: LOSARTAN POTASSIUM 100 MG TABLET PO (08:04)
--- NOTE | 2021-10-20 10:54 | PM.IMPN ---
Progress Note: A&P Assessment and Plan (1) Umbilical hernia without mention of obstruction or gangrene: Code(s): K42.9 - Umbilical hernia without obstruction or gangrene Status: Chronic Assessment and Plan: Lizzy Valderrama is a 51 year old female had been seen general surgeon with complaint of ventral and umbilical hernia and today patient was taken to the OR for surgical repair today, patient has history of hypertension and diabetes been consulted for medical management, patient remains clinically stable, complains of abdominal pain with movement most likely secondary to the surgery, patient denies any nausea or vomiting, any chest pain shortness of breath or dizzy, patient's home medications resumed, will monitor, thank you for consulting for medical management, will follow the patient with you, if you have any question please feel free to call. DVT prophylaxis per surgery team. 10/19/2021 interval history: status post abdominal ventral hernia and umbilical hernia surgery postop day 1. , abdominal pain is better denies any nausea or vomiting, however has not passing any gas or had a BM, patient has been ambulating in the corridor, able to tolerate diabetic diet no nausea or vomit, patient is seen by surgery service will continue to monitor and further recommendation to follow. 10/20/2021 interval history: status post abdominal ventral hernia and umbilical hernia surgery postop day 2. , abdominal pain is better denies any nausea or vomiting. patient had a BM today, patient has been ambulating in the corridor, able to tolerate diabetic diet no nausea or vomit, patient is seen by surgery service today okay to discharge her. (2) Essential (primary) hypertension: Code(s): I10 - Essential (primary) hypertension Status: Acute Assessment and Plan: patient started on home medication will monitor (3) Diabetes mellitus with hyperglycemia, without long-term current use of insulin: Code(s): E11.65 - Type 2 diabetes mellitus with hyperglycemia Status: Chronic Assessment and Plan: patient started on metformin will monitor with sliding scale. Subjective Date/time seen: 10/20/21 10:54 10/20/2021 interval history: status post abdominal ventral hernia and umbilical hernia surgery postop day 2. , abdominal pain is better denies any nausea or vomiting. patient had a BM today, patient has been ambulating in the corridor, able to tolerate diabetic diet no nausea or vomit, patient is seen by surgery service today okay to discharge her. Review of Systems Review of Systems: All systems reviewed & are unremarkable except as noted in HPI and below ( HPI and those items noted below) Exam Narrative: moderately obese Patient is comfortable, NAD HEENT: eyes are clear and none icteric LUNGS: normal respiratory effort ABD: distended Lower extremities: no edema SKIN: nonjaundiced Neuro: grossly intact. Objective Data Vital Signs Vital Signs: Vital Signs - 24 hr 10/19/21 14:50 10/19/21 20:43 10/20/21 04:15 Temperature 98.2 F 97.6 F 97.3 F L Pulse Rate 93 87 93 Respiratory Rate 18 16 20 Blood Pressure 109/70 136/77 139/83 Pulse Oximetry 96 98 97 Oxygen Delivery 10/20/21 08:04 Temperature Pulse Rate Respiratory Rate 20 Blood Pressure Pulse Oximetry 98 Oxygen Delivery Room Air Intake/Output Intake/Output: Intake & Output 10/17/21 10/18/21 10/19/21 10/20/21 23:59 23:59 23:59 23:59 Intake Total 1000 2750 660 Output Total 150 3100 1500 Balance 850 -350 -840 Meds/Results Medications: Active Medications Generic Name Dose Route Start Last Admin Trade Name Freq PRN Reason Stop Dose Admin Acetaminophen 500 mg 10/18/21 13:29 10/20/21 07:56 Acetaminophen 500 Mg Tablet PO 500 mg Q6H PRN Administration Mild Pain (1-3) or Fever Hydrocodone Bitart/Acetaminophen 1 tab 10/18/21 13:29 10/18/21 14:14 Hydrocodone/Acetaminophen (*Crx) 5-32
[2021-10-20 11:26] LABS: Glucose Point of Care 173 mg/dl (65-105)
== END 2021-10-20 14:00 | disposition home or self-care (01) ==
LOC: ANHSURGERY 17:35 → ANH2MED 17:35
PROVIDERS: Family Medicine; Admitting Provider Surgery; PCP Family Medicine; Visit Provider Surgery
PROC: (CPT 49653; principal; 2021-10-18 09:00)
DX: K43.6 Other and unspecified ventral hernia with obstruction, without gangrene (principal); K42.9 Umbilical hernia without obstruction or gangrene; E66.9 Obesity, unspecified; Z68.35 Body mass index [BMI] 35.0-35.9, adult; E11.65 Type 2 diabetes mellitus with hyperglycemia; D50.9 Iron deficiency anemia, unspecified; Z79.84 Long term (current) use of oral hypoglycemic drugs; Z79.51 Long term (current) use of inhaled steroids
CPT/HCPCS: 49653; 36415; 80048; 82948; 83735; 85027; A9270; C1781; G0378; J0690; J1100; J1650; J1815; J1885; J2250; J2270; J2405; J2704; J2710; J3010; J7120